=== PATIENT | male | born 1965 | race Caucasian/White ===

== ENCOUNTER 2022-06-10 14:27 | Inpatient (IN) | payer BC ==
[2022-06-10] MEDS ORDERED: Sodium Chloride 0.9% 10 ML Syringe FLUSH PRN (14:43)
[2022-06-10] MEDS ORDERED: Sodium Chloride 0.9% 1,000 ML IV SCH (14:45)
[2022-06-10] MEDS ORDERED: Sodium Chloride 0.9% 1,000 ML IV STA (16:04)
[2022-06-10] MEDS ORDERED: Insulin Regular in 0.9 % NACL 100 ML IV STA (16:12)
[2022-06-10] MEDS ORDERED: Ondansetron 4 MG/2 ML SDV IV PRN (16:55)
[2022-06-10] MEDS ORDERED: Ondansetron 4 MG Tab.DIS PO PRN (16:55)
[2022-06-10] MEDS ORDERED: Zolpidem 5 MG Tab PO PRN (16:55)
[2022-06-10] MEDS ORDERED: Acetaminophen 325 MG Tab PO PRN (16:55)
[2022-06-10] MEDS ORDERED: Acetaminophen/HYDROcodone 325-5 MG Tab PO PRN (16:55)
[2022-06-10] MEDS ORDERED: Insulin Regular in 0.9 % NACL 100 ML IV SCH ×2 (17:15→17:45)
[2022-06-10] MEDS: Sodium Chloride 0.9% 1,000 ML IV SCH ×2 (17:45→21:42)
[2022-06-10] MEDS: Dextrose 5%-0.9% NaCl 1,000 ML IV SCH (23:47)
[2022-06-11] MEDS: Dextrose 5%-0.9% NaCl 1,000 ML IV SCH (04:51)
[2022-06-11] MEDS: Lisinopril 10 MG Tab PO SCH (08:01)
[2022-06-11] MEDS: Rosuvastatin 10 MG Tab PO SCH (08:01)
[2022-06-11] MEDS: Enoxaparin 40 MG/0.4 ML Syringe SUBCUT SCH (08:02)
[2022-06-11] MEDS: Aspirin 81 MG Tab.EC PO SCH (08:02)
[2022-06-11] MEDS: cefTRIAXone 2 GM in Sodium Chloride 0.9% 100 ML IV SCH (09:52)
[2022-06-12] MEDS: Lisinopril 10 MG Tab PO SCH (08:00)
[2022-06-12] MEDS: Rosuvastatin 10 MG Tab PO SCH (08:01)
[2022-06-12] MEDS: Enoxaparin 40 MG/0.4 ML Syringe SUBCUT SCH (08:01)
[2022-06-12] MEDS: Aspirin 81 MG Tab.EC PO SCH (08:02)
[2022-06-12] MEDS: cefTRIAXone 2 GM in Sodium Chloride 0.9% 100 ML IV SCH (08:02)
== END 2022-06-12 10:30 | disposition home or self-care (01) | DRG 420 ==
LOC: JD.ED 14:27 → JD.ICU 16:55 → UNDOADMIN 16:55 → JD.ICU 06-11 16:20
PROVIDERS: ADMIT Hospitalist; ATTEND Hospitalist
DX: E10.10 Type 1 diabetes mellitus with ketoacidosis without coma (principal); D72.9 Disorder of white blood cells, unspecified; H54.7 Unspecified visual loss; I10 Essential (primary) hypertension; E78.5 Hyperlipidemia, unspecified; Z79.82 Long term (current) use of aspirin; Z79.899 Other long term (current) drug therapy; Z88.6 Allergy status to analgesic agent
CPT/HCPCS: 36415; 36600; 80048; 80053; 81001; 82009; 82803; 82947; 83605; 83735; 84100; 85025; 86140; 87040; A9270-GY; J0696; J1650; J1815; J2405; J3490; J7030; J7042